=== PATIENT | female | born 1995 | race Caucasian/White ===

== ENCOUNTER 2022-04-06 12:35 | Outpatient (CLI) | payer BC, SELFPAY ==
[2022-04-06 13:00] VITALS: BP 115/71; PULSE 100
[2022-04-06 13:15] VITALS: BP 117/71; PULSE 84
[2022-04-06 13:25] VITALS: BP 115/71; PULSE 98
== END 2022-04-06 13:25 | disposition home or self-care (01) ==
LOC: ANHOBOP 12:43
PROVIDERS: Visit Provider Obstetrics & Gynecology
DX: O41.8X90 Other specified disorders of amniotic fluid and membranes, unspecified trimester, not applicable or unspecified (principal); Z3A.00 Weeks of gestation of pregnancy not specified
CPT/HCPCS: 59025; 84112